=== PATIENT | male | born 1970 | race Caucasian/White ===

== ENCOUNTER 2024-12-30 10:13 | Emergency (ER) | payer BC, SELFPAY ==
--- NOTE | 2024-12-30 10:16 | ED.ANIMALBIT ---
HPI - Animal Bite General Chief Complaint: Animal Bite Stated Complaint: dog bite left hand Time Seen by Provider: 12/30/24 10:16 Source: patient Mode of arrival: ambulatory Limitations: no limitations History of Present Illness HPI narrative: Renaldo is a 54-year-old male patient presenting to the clinic today with complaints a dog bite to his left hand that occurred on Sunday. He reports he was trying to break up a dog fight between his dog and 2 pit bulls. The pupils were the neighbor's pit bulls who had jumped a fence and attacked his dog. States he was able to get the dog's way but maybe have gotten either a bite or a scratch to the left dorsal hand. States he feels as though his hand is swollen and it is more painful today. Denies any fevers, chills, body aches. States he has filled out the animal bite paperwork. Tetanus is unknown. Related Data Allergies Allergy/AdvReac Type Severity Reaction Status Date / Time No Known Allergies Allergy Verified 12/30/24 10:26 Review of Systems Review of Systems: Pertinent positives per HPI. Patient denies any fever, chills, rash, headache, visual changes, dizziness, cough, runny nose, sore throat, shortness of breath, chest pain, palpitations, nausea, vomiting, diarrhea, constipation, abdominal pain, or any urinary issues. PMFSH Comments At the time of my signature, I reviewed and agree with the nursing past medical, surgical, social, and family history. There is no relevant family history pertinent to the patient complaint. Exam Narrative: General: Well-developed, well nourished, in no apparent distress Head: Normocephalic, atraumatic. Cardio: Regular rate and rhythm, s1 and s2 normal, no murmur appreciated. Resp: Clear to auscultation bilaterally, no rhonchi, rales, wheezing or rubs. Integumentary: [employer], warm, and dry, abrasion to the left dorsal hand with tenderness to palpation over wound without induration or redness. Bleeding controlled. No tenderness over his metacarpals or phalanges. Course Course Emergency Course: Portions of this record may have been created with voice recognition software. Level of Care: Express Care Visit Vital Signs Vital signs: Vital Signs Temperature 36.6 C 12/30/24 10:22 Pulse Rate 69 12/30/24 10:22 Respiratory Rate 20 12/30/24 10:22 Blood Pressure 144/89 H 12/30/24 10:22 Pulse Oximetry 100 12/30/24 10:22 Oxygen Delivery Room Air 12/30/24 10:22 Temperature 36.6 C 12/30/24 10:22 Pulse Rate 69 12/30/24 10:22 Respiratory Rate 20 12/30/24 10:22 Blood Pressure 144/89 H 12/30/24 10:22 Pulse Oximetry 100 12/30/24 10:22 Oxygen Delivery Room Air 12/30/24 10:22 Vital signs reviewed MDM - Animal Bite MDM Narrative Medical decision making narrative: At the time of visit patient is resting comfortably on the exam table. Patient appears to be nontoxic. Complaints a dog bite to his left hand that occurred on Sunday. He reports he was trying to break up a dog fight between his dog and 2 pit bulls. The pupils were the neighbor's pit bulls who had jumped a fence and attacked his dog. States he was able to get the dog's way but maybe have gotten either a bite or a scratch to the left dorsal hand. States he feels as though his hand is swollen and it is more painful today. Denies any fevers, chills, body aches. States he has filled out the animal bite paperwork. Tetanus is unknown. On exam patient has an abrasion to the left dorsal hand with tenderness to palpation over wound without induration or redness. No tenderness over his metacarpals or phalanges. Tetanus shot ordered. Plan: I suspect patient has a dog bite/abrasion to the left dorsal hand. Tetanus shot was updated in the clinic today. Prescription for Augmentin was sent to the pharmacy. Supportive measures were discussed with the patient and they voiced understanding discharge instructions and agrees to treatment plan. Return precautions reviewed Differential Diagnosis Differential diagnosis: Likely bite by animal, dog bite and rabies contact Discharge Plan Discharge Clinical Impression: Dog bite Qualifiers: Encounter type: initial encounter Qualified Code(s): W54.0XXA - Bitten by dog, initial encounter Patient Disposition: Home Condition: Stable Instructions: Antibiotic Form, Animal Bite (ED) Additional Instructions: Tdap 0.5 mL IM given in the clinic today Leave bandage on for 24 hours then may remove and apply band aide covering as needed. Take Augmentin as prescribed Keep wound clean and dry Wash wound daily with soap and water May apply triple antibiotic ointment to the wound twice daily times 48 hours Watch for signs and symptoms of infection- redness, streaking, swelling, purulent discharge, or increase in pain. Follow up with your PCP in 3 days for wound check Patient Language: [place] Prescriptions: New amoxicillin-pot clavulanate 875-125 mg tablet 1 tablet PO Q12H 7 Days Qty: 14 0RF Follow-up/Referrals: UNKNOWN,DOCTOR [Non-Staff] Time of Disposition: 10:35 Quality NIHSS Nursing Documentation ED NIHSS nursing documentation: reviewed/agree
[2024-12-30 10:22] VITALS: BP 144/89; PULSE 69; RESP 20; TEMP 36.6; O2SAT 100
[2024-12-30] MEDS: TETANUS,DIPHTHERIA,AC PERTUSSIS ADULT (0.5 ML) BOOSTRIX IM (10:37)
== END 2024-12-30 10:48 | disposition home or self-care (01) ==
PROVIDERS: Emergency Provider Nurse Practitioner Family
DX: S60.512A Abrasion of left hand, initial encounter (principal); W54.0XXA Bitten by dog, initial encounter; Z23 Encounter for immunization
CPT/HCPCS: 90471; 90715; 99213; G0463